=== PATIENT | female | born 1930 | race Caucasian/White ===

== ENCOUNTER 2017-07-12 12:18 | Day surgery (SDC) | payer MEDICARE, OTHER ==
[~2017-07-12] VITALS: Ht 167.6 cm; Wt 52.7 kg
[2017-07-12] VITALS (12 sets, daily range): BP systolic 98–144; BP diastolic 41–95; PULSE 60–101; TEMP 97.8–98.2
[2017-07-12 13:03] LABS: HEMATOCRIT 41.6 % (37.0-47.0); HEMOGLOBIN 14.2 g/dl (12.5-16.0); MEAN CELL VOLUME 105 fl (80.0-100.0); MEAN CORPUSCULAR HEMOGLOBIN 36 pg (27.0-31.0); MEAN CORPUSCULAR HGB CONC 34 g/dl (33.0-37.0); MEAN PLATELET VOLUME 11.1 fl (7.4-10.4); PLATELET COUNT 161 K/mm3 (130-400); RED BLOOD COUNT 3.97 M/mm3 (4.10-5.30); REDCELL DISTRIBUTION WIDTH-CV 13.1 % (11.5-14.5)
[2017-07-12 13:11] LABS: INR 1.1 (0.8-3.0); PROTHROMBIN TIME 12.2 SECONDS (9.7-12.8)
[2017-07-12 13:20] LABS: CALCIUM 9.9 mg/dL (8.4-10.2); CREATININE, serum 0.73 mg/dL (0.52-1.25); POTASSIUM 3.7 mmol/L (3.4-5.0)
[2017-07-12] MEDS ORDERED: TENORMIN 5050 MG/TAB PO (13:58)
[2017-07-12] MEDS ORDERED: HYGROTON 2525 MG/TAB PO (13:58)
[2017-07-12] MEDS ORDERED: CELEXA 20MG20 MG/TAB PO (13:59)
[2017-07-12] MEDS ORDERED: FOLIC ACID 11 MG/TA1 PO (13:59)
[2017-07-12] MEDS ORDERED: PRINIVIL20 MG PO (13:59)
[2017-07-12] MEDS ORDERED: METHOTREXA2.5 MG/TAB PO (14:01)
[2017-07-12] MEDS ORDERED: PLAQUENIL 200M200 MG PO (14:01)
[2017-07-12] MEDS ORDERED: ZANTAC 150MG T150 MG PO (14:01)
[2017-07-12] MEDS ORDERED: COUMADIN 1MG1 MG/TAB PO (14:02)
[2017-07-12] MEDS ORDERED: ALPHAG-P-0.1-5ML OP (14:05)
[2017-07-12] MEDS ORDERED: ULTRAM 50MG TAB50 MG PO (14:06)
[2017-07-12] MEDS ORDERED: XALATAN EYE DROPS OD (14:06)
[2017-07-12] MEDS ORDERED: COSOPT 2%-0.5%10 ML OU (14:06)
[2017-07-12] MEDS ORDERED: MULTIPLE VITAMI1 CAP PO (14:07)
[2017-07-12] MEDS ORDERED: TYLENOL 500MG500 MG PO (14:07)
[2017-07-12] MEDS ORDERED: CALCIUM 600MG+D1 TAB PO (14:07)
[2017-07-12] MEDS ORDERED: OMEGA-3 1000 MG1 CAP PO (14:08)
[2017-07-13 04:00] VITALS: BP 126/74; PULSE 64; TEMP 97.2
[2017-07-13 08:06] VITALS: BP 123/76; PULSE 75; TEMP 98.9
[2017-07-13 11:29] VITALS: BP 113/58; PULSE 66; TEMP 98.1
[2017-07-13] MEDS ORDERED: CEPHALEXIN500 M1 PO (13:44)
[2017-07-13] MEDS ORDERED: NORCO 325 MG-51 TAB PO (13:44)
== END 2017-07-13 14:42 | disposition home or self-care (01) ==
LOC: COL.CAR 12:18 → MEDICAL 16:46 → COL.CAR 07-13 14:42
PROVIDERS: Internal Medicine Interventional Cardiology
DX: I49.5 Sick sinus syndrome (principal); I48.1 Persistent atrial fibrillation; I70.209 Unspecified atherosclerosis of native arteries of extremities, unspecified extremity; I08.3 Combined rheumatic disorders of mitral, aortic and tricuspid valves; Z79.01 Long term (current) use of anticoagulants; Z68.1 Body mass index [BMI] 19.9 or less, adult; Z87.891 Personal history of nicotine dependence; Z82.49 Family history of ischemic heart disease and other diseases of the circulatory system; Z88.1 Allergy status to other antibiotic agents
CPT/HCPCS: OP; C1785; C1894; C1898; J0690; J1940; J2250; J3010; J7030

== ENCOUNTER → 2017-08-31 | Outpatient (CLI) | payer MEDICARE, OTHER ==
[~2017-08-31] MED LIST: ALPHAG-P-0.1-5ML OP; CALCIUM 600MG+D1 TAB PO; CELEXA 20MG20 MG/TAB PO; CEPHALEXIN500 M1 PO; COSOPT 2%-0.5%10 ML OU; COUMADIN 1MG1 MG/TAB PO; FOLIC ACID 11 MG/TA1 PO; HYGROTON 2525 MG/TAB PO; METHOTREXA2.5 MG/TAB PO; MULTIPLE VITAMI1 CAP PO; NORCO 325 MG-51 TAB PO; OMEGA-3 1000 MG1 CAP PO; PLAQUENIL 200M200 MG PO; PRINIVIL20 MG PO; TENORMIN 5050 MG/TAB PO; TYLENOL 500MG500 MG PO; ULTRAM 50MG TAB50 MG PO; XALATAN EYE DROPS OD; ZANTAC 150MG T150 MG PO
== END ==
LOC: MHCPAIN 10:31
DX: G89.29 Other chronic pain (principal); M47.812 Spondylosis without myelopathy or radiculopathy, cervical region; M54.81 Occipital neuralgia; R51 Headache; Z87.891 Personal history of nicotine dependence
CPT/HCPCS: G0463; J1100

== ENCOUNTER → 2017-10-02 | Outpatient (CLI) | payer MEDICARE, OTHER | LOC: MHCPAIN 11:41 | DX: G89.29 Other chronic pain (principal); M50.90 Cervical disc disorder, unspecified, unspecified cervical region; M54.81 Occipital neuralgia; R51 Headache | CPT/HCPCS: G0463 ==

== ENCOUNTER → 2017-10-24 | Outpatient (CLI) | payer MEDICARE, OTHER | LOC: MHCPAIN 10:44 | DX: Z53.8 Procedure and treatment not carried out for other reasons (principal) ==

== ENCOUNTER → 2018-02-20 | Outpatient (CLI) | payer MEDICARE, OTHER | LOC: MHCPAIN 09:45 | DX: G89.29 Other chronic pain (principal); M50.90 Cervical disc disorder, unspecified, unspecified cervical region; M54.81 Occipital neuralgia; R51 Headache | CPT/HCPCS: G0463 ==

== ENCOUNTER → 2018-03-19 | Outpatient (CLI) | payer MEDICARE, OTHER | LOC: MHCPAIN 13:44 | DX: G89.29 Other chronic pain (principal); M54.81 Occipital neuralgia | CPT/HCPCS: J1100 ==

== ENCOUNTER → 2019-02-11 | Outpatient (CLI) | payer MEDICARE, OTHER | LOC: MHCPAIN 11:11 | DX: G89.29 Other chronic pain (principal); M54.81 Occipital neuralgia; R51 Headache; M47.812 Spondylosis without myelopathy or radiculopathy, cervical region | CPT/HCPCS: G0463 ==